=== PATIENT | female | born 1955 | race Caucasian/White ===

== ENCOUNTER 2023-04-23 11:46 | Emergency (ER) | payer MEDICARE ==
[~2023-04-23] VITALS: Ht 154.9 cm; Wt 72.2 kg
[2023-04-23 11:54] VITALS: BP 165/79
[2023-04-23 12:00] VITALS: BP 169/87
[2023-04-23] MEDS ORDERED: SYNTHROID25 MCG PO (12:01)
[2023-04-23] MEDS ORDERED: LIOTHYRONINE5 MCG PO (12:02)
[2023-04-23] MEDS ORDERED: MOTRIN400 MG/TAB PO (12:03)
[2023-04-23] MEDS ORDERED: BLOOD PRESSURE (12:04)
[2023-04-23 12:31] VITALS: BP 157/63
[2023-04-23] MEDS ORDERED: NAPROXEN500 MG PO (13:25)
[2023-04-23 13:33] VITALS: BP 157/63
== END 2023-04-23 13:35 | disposition home or self-care (01) ==
LOC: ED 11:46
DX: R60.0 Localized edema (principal); I10 Essential (primary) hypertension; F17.210 Nicotine dependence, cigarettes, uncomplicated; Z86.718 Personal history of other venous thrombosis and embolism; M79.604 Pain in right leg

== ENCOUNTER 2024-05-02 12:59 | Emergency (ER) | payer MEDICARE ==
[~2024-05-02] VITALS: Ht 154.9 cm; Wt 64.0 kg
[2024-05-02] VITALS (8 sets, daily range): BP systolic 108–180; BP diastolic 55–68
[~2024-05-02 12:59] MED LIST: BLOOD PRESSURE; LIOTHYRONINE5 MCG PO; MOTRIN400 MG/TAB PO; NAPROXEN500 MG PO; SYNTHROID25 MCG PO
[2024-05-02] MEDS ORDERED: SODIUM CHLORIDE 0.9% 1,000 ML IV ONE ×2 (13:35→15:10)
[2024-05-02 14:21] LABS: BASO% 0.2 % (0-3); EOS% 1.3 % (0-8); HEMATOCRIT 43.1 % (37.0-47.0); HEMOGLOBIN 14.4 g/dl (12.0-16.0); IMMATURE GRANULOCYTES 0.2 % (0.0-5.0); MEAN CELL VOLUME 96.4 fL CALC (80.0-100.0); MEAN CORPUSCULAR HGB 32.2 pG CALC (26.0-32.0); MEAN CORPUSCULAR HGB CONC 33.4 g/dL CAL (32.0-36.0); MONO% 4.9 % (2-13); NEUT# 3.14 thou/uL (2.00-7.15); RED BLOOD COUNT 4.47 mill/uL (4.20-5.60); RED CELL DISTRI WIDTH 12.5 % (11.5-15.5)
[2024-05-02 14:23] LABS: ALBUMIN 4.1 g/dL (3.2-5.0); BILIRUBIN, TOTAL 0.7 mg/dL (0.02-1.3); POTASSIUM 4.2 mmol/l (3.5-5.1); TOTAL PROTEIN 7.4 g/dL (6.3-8.2)
[2024-05-02 14:55] LABS: LYMPH% 44.4 % (15-41)
[2024-05-02 15:31] LABS: URINE BILIRUBIN - DIPSTICK Negative (NEGATIVE); URINE BLOOD DIPSTICK Negative (NEGATIVE); URINE COLOR Yellow; URINE GLUCOSE - DIPSTICK Negative (NEGATIVE); URINE KETONE Negative (NEGATIVE); URINE LEUK ESTERASE Negative (NEGATIVE); URINE NITRITE - DIPSTICK Negative (Negative); URINE PROTEIN - DIPSTICK Negative (NEG-TRACE); URINE UROBILINOGEN - DIPSTICK 0.2 E.U./dL (0.2)
== END 2024-05-02 15:57 | disposition home or self-care (01) ==
LOC: ED 12:59
PROVIDERS: Nurse Practitioner Family
DX: E86.0 Dehydration (principal); R53.1 Weakness; R05.9 Cough, unspecified; R50.9 Fever, unspecified; R52 Pain, unspecified; I10 Essential (primary) hypertension; Z86.718 Personal history of other venous thrombosis and embolism; Z72.0 Tobacco use; Z20.822 Contact with and (suspected) exposure to COVID-19

== ENCOUNTER 2024-05-10 23:09 | Emergency (ER) | payer MEDICARE ==
[~2024-05-10] VITALS: Ht 154.9 cm; Wt 62.0 kg
[2024-05-10 23:25] VITALS: BP 134/58
[2024-05-10] MEDS ORDERED: ACETAMINOPHEN 500 MG TAB PO ONE (23:30)
[2024-05-10] MEDS ORDERED: KETOROLAC TROMETHAMINE 30 MG/ML SDV IV ONE (23:30)
[2024-05-10] MEDS ORDERED: ASPIRIN 81 MG/TAB PO ONE (23:30)
[2024-05-10] MEDS ORDERED: MULTIPLE VITAMIN 10 ML,THIAMINE HCL 100 MG in SODIUM CHLORIDE 0.9% 1,000 ML IV ONE (23:30)
[2024-05-10 23:49] LABS: BASO% 0.2 % (0-3); EOS% 3.2 % (0-8); HEMATOCRIT 37.6 % (37.0-47.0); HEMOGLOBIN 12.7 g/dl (12.0-16.0); IMMATURE GRANULOCYTES 0.1 % (0.0-5.0); LYMPH% 42.2 % (15-41); MEAN CELL VOLUME 95.7 fL CALC (80.0-100.0); MEAN CORPUSCULAR HGB 32.3 pG CALC (26.0-32.0); MEAN CORPUSCULAR HGB CONC 33.8 g/dL CAL (32.0-36.0); MONO% 5.7 % (2-13); NEUT# 4.43 thou/uL (2.00-7.15); NEUT% 48.6 % (42-76); RED BLOOD COUNT 3.93 mill/uL (4.20-5.60); RED CELL DISTRI WIDTH 12.7 % (11.5-15.5)
[2024-05-11] VITALS: BP 134/58
[2024-05-11] LABS: ALBUMIN 4.1 g/dL (3.2-5.0); ALKALINE PHOSPHATASE 79 u/l (38-126); BUN 13 mg/dL (8-23); BUN/CREATININE RATIO 12 (12-20 (CALC)); CHLORIDE 110 mmol/l (95-108); CREATININE 1.1 mg/dL (0.5-1.0); ESTIMATED GFR 54 ML/MIN (>=90 (CALC)); ETHYL ALCOHOL 186 mg/dl (0-30); LIPASE 149 u/l (23-300); POTASSIUM 3.8 mmol/l (3.5-5.1); SGOT/AST 34 u/l (9-36); SODIUM 141 mmol/l (137-146); TOTAL PROTEIN 7.4 g/dL (6.3-8.2)
[2024-05-11 00:12] LABS: ACT PARTIAL THROMBO TIME 26.4 SECONDS (20.0-32.5); ANION GAP 10 (6-22 (CALC)); BILIRUBIN, TOTAL 0.4 mg/dL (0.02-1.3); CARBON DIOXIDE 25 mmol/l (22-30); INTERNATIONAL NORMALIZED RATIO 0.9 RATIO (0.7-1.3)
[2024-05-11 00:15] LABS: PROTHROMBIN TIME 10.2 SECONDS (9.0-12.5)
== END 2024-05-11 | disposition left against medical advice (07) ==
LOC: ED 23:09
PROVIDERS: Family Medicine
DX: R07.9 Chest pain, unspecified (principal); I10 Essential (primary) hypertension; Z86.718 Personal history of other venous thrombosis and embolism; Z72.0 Tobacco use; Z53.29 Procedure and treatment not carried out because of patient's decision for other reasons